=== PATIENT | female | born 1995 | race Caucasian/White ===

== ENCOUNTER 2017-04-04 06:11 | Emergency (ER) | payer OTHER ==
[~2017-04-04] VITALS: Ht 154.9 cm; Wt 72.6 kg
[2017-04-04 06:41] LABS: ABSOLUTE BASOPHILS 0.1 thou/uL (0.0-0.2); ABSOLUTE EOSINOPHILS 0.3 thou/uL (0.0-0.7); ABSOLUTE LYMPHOCYTES 3.8 thou/uL (0.8-5.3); ABSOLUTE MONOCYTES 0.9 thou/uL (0.0-1.2); ABSOLUTE NEUTROPHILS 7.5 thou/uL (1.6-8.1); BASOPHILS 0.9 %; EOSINOPHILS 2.2 %; HEMATOCRIT 43.9 % (37.0-47.0); HEMOGLOBIN 14.6 gm/dL (12.0-15.0); LYMPHOCYTES 30.4 %; MCH 29.2 pg (26.0-34.0); MCHC 33.3 g/dL (28.0-37.0); MCV 87.6 fL (80.0-100.0); MONOCYTES 6.9 %; MPV 8.1 fl. (7.2-11.1); NUCLEATED RBCS 0 /100WBC; PLATELET COUNT* 263 thou/uL (150-400); POLYS 59.6 %; RBC 5.01 mil/uL (4.20-5.00); RDW-CV 13.9 % (10.5-14.5); WBC 12.6 thou/uL (4.0-11.0)
[2017-04-04 06:55] LABS: CALCIUM 8.9 mg/dL (8.5-10.1); CREATININE 0.6 mg/dL (0.6-1.3); POTASSIUM 3.8 mmol/L (3.5-5.1)
[2017-04-04 07:00] LABS: TOTAL BILIRUBIN 0.2 mg/dL (<0.1-1.0); TOTAL PROTEIN 7.6 g/dL (6.4-8.2)
[2017-04-04 07:48] VITALS: BP 144/93
[2017-04-04 12:05] LABS: T3 UPTAKE 25 % (24-39)
--- NOTE | 2017-04-04 17:17 | EKG ---
[place] [address] ELECTROCARDIOGRAM REPORT Name: COLLINS BURNS Room: [facility]#: [id number] Admission: 04/04/17 Attend Phys: Discharge: 04/04/17 Date of : [birth year] Report #: [id number] THIS REPORT FOR: //name// [facility] ED Test Date: 2017-04-04 Test Time: 06:25:30 Pat Name: COLLINS BURNS Department: Room: Gender: F Educational Speech Language Clinician: KLEVER : 1995 Requested By: Shayy Morocho Order Number: [id number] MD: Thomas Cody Measurements Intervals [place] Rate: 76 P: 47 [place]: 139 QRS: 62 QRSD: 98 T: 42 QT: 363 QTc: 409 Interpretive Statements Sinus rhythm RSR' in V1 or V2, right VCD or RVH No previous ECG available for comparison Electronically Signed On 04-04-2017 17:16:54 DOWEL INSPECTOR by Thomas Cody [email or web address] <ELECTRONICALLY SIGNED> By: Thomas Cody MD, [facility] 04/04/17 1716 4 4 Thomas Cody MD, FACC /EPI
== END 2017-04-04 07:48 | disposition home or self-care (01) ==
LOC: M.ERS 06:11
PROVIDERS: Emergency Medicine; Personal Emergency Response Attendant
DX: R00.2 Palpitations (principal); F41.9 Anxiety disorder, unspecified; R07.89 Other chest pain

== ENCOUNTER 2017-04-16 06:47 | Emergency (ER) | payer OTHER ==
[~2017-04-16] VITALS: Ht 154.9 cm; Wt 72.6 kg
[2017-04-16] MEDS ORDERED: KEFLEX500 M1 PO (07:17)
[2017-04-16] MEDS ORDERED: IBUPROFEN 800800 MG PO (07:17)
[2017-04-16 07:35] VITALS: BP 152/82
== END 2017-04-16 07:35 | disposition home or self-care (01) ==
LOC: M.ERS 06:47
DX: N61.0 Mastitis without abscess (principal); F10.99 Alcohol use, unspecified with unspecified alcohol-induced disorder; T78.40XA Allergy, unspecified, initial encounter; X58.XXXA Exposure to other specified factors, initial encounter

== ENCOUNTER 2017-05-21 02:05 | Emergency (ER) | payer OTHER ==
[~2017-05-21] VITALS: Ht 154.9 cm; Wt 74.8 kg
[~2017-05-21 02:05] MED LIST: IBUPROFEN 800800 MG PO; KEFLEX500 M1 PO
[2017-05-21 02:16] VITALS: BP 153/100
[2017-05-21] MEDS ORDERED: TOBREX5 ML OPHTHALMIC (02:35)
== END 2017-05-21 02:49 | disposition home or self-care (01) ==
LOC: M.ERS 02:05
DX: H10.32 Unspecified acute conjunctivitis, left eye (principal); F41.0 Panic disorder [episodic paroxysmal anxiety]

== ENCOUNTER 2017-11-19 15:06 | Emergency (ER) | payer OTHER ==
[~2017-11-19] VITALS: Ht 154.9 cm; Wt 72.6 kg
[~2017-11-19 15:06] MED LIST changes: +TOBREX5 ML OPHTHALMIC
[2017-11-19] MEDS ORDERED: AFRIN15 ML NASAL (17:47)
[2017-11-19] MEDS ORDERED: BUTALB-APAP-CA1 EACH PO (17:47)
[2017-11-19] MEDS ORDERED: AMOXICILLIN 50500 MG PO (17:47)
[2017-11-19 17:58] VITALS: BP 117/81
== END 2017-11-19 17:59 | disposition home or self-care (01) ==
LOC: M.ERS 15:06
DX: R51 Headache (principal)

== ENCOUNTER 2017-11-22 03:54 | Emergency (ER) | payer OTHER ==
[~2017-11-22] VITALS: Ht 152.4 cm; Wt 72.6 kg
[~2017-11-22 03:54] MED LIST changes: +AFRIN15 ML NASAL; +AMOXICILLIN 50500 MG PO; +BUTALB-APAP-CA1 EACH PO
[2017-11-22] MEDS ORDERED: IBUPROFEN 800800 M1 PO (04:36)
[2017-11-22 04:45] VITALS: BP 139/92
== END 2017-11-22 04:47 | disposition home or self-care (01) ==
LOC: M.ERS 03:54
DX: L03.011 Cellulitis of right finger (principal); F41.0 Panic disorder [episodic paroxysmal anxiety]; G43.909 Migraine, unspecified, not intractable, without status migrainosus

== ENCOUNTER 2018-02-06 11:23 | Emergency (ER) | payer OTHER ==
[~2018-02-06] VITALS: Ht 154.9 cm; Wt 72.6 kg
[~2018-02-06 11:23] MED LIST changes: +IBUPROFEN 800800 M1 PO
[2018-02-06] MEDS ORDERED: TRAMADOL 50 MG50 MG PO (11:34)
[2018-02-06] MEDS ORDERED: AMOXICILLIN 50500 MG PO (11:34)
[2018-02-06] MEDS ORDERED: HYDROCODONE-AP1 EAC6 PO (11:41)
[2018-02-06 11:52] VITALS: BP 169/93
== END 2018-02-06 11:54 | disposition home or self-care (01) ==
LOC: M.ERS 11:23
DX: K02.9 Dental caries, unspecified (principal)

== ENCOUNTER 2018-06-16 16:18 | Emergency (ER) | payer OTHER ==
[~2018-06-16] VITALS: Ht 154.9 cm; Wt 76.2 kg
[~2018-06-16 16:18] MED LIST changes: +HYDROCODONE-AP1 EAC6 PO; +TRAMADOL 50 MG50 MG PO
[2018-06-16 16:36] VITALS: BP 158/98
[2018-06-16] MEDS ORDERED: TESSALON PERLE100 MG PO (17:05)
[2018-06-16] MEDS ORDERED: MEDROL DOSPAK21 TA1 PO (17:05)
== END 2018-06-16 17:18 | disposition home or self-care (01) ==
LOC: M.ERS 16:18
DX: J40 Bronchitis, not specified as acute or chronic (principal); F41.0 Panic disorder [episodic paroxysmal anxiety]; G43.909 Migraine, unspecified, not intractable, without status migrainosus

== ENCOUNTER 2018-08-21 12:25 | Emergency (ER) | payer OTHER ==
[~2018-08-21] VITALS: Ht 154.9 cm; Wt 72.6 kg
[~2018-08-21 12:25] MED LIST changes: +MEDROL DOSPAK21 TA1 PO; +TESSALON PERLE100 MG PO
[2018-08-21 13:31] VITALS: BP 147/97
== END 2018-08-21 13:33 | disposition home or self-care (01) ==
LOC: M.ERS 12:25
DX: S61.210A Laceration without foreign body of right index finger without damage to nail, initial encounter (principal); G43.909 Migraine, unspecified, not intractable, without status migrainosus; W26.0XXA Contact with knife, initial encounter; Y93.89 Activity, other specified; Y92.89 Other specified places as the place of occurrence of the external cause; Y99.8 Other external cause status

== ENCOUNTER 2018-08-31 16:02 | Emergency (ER) | payer OTHER ==
[~2018-08-31] VITALS: Ht 154.9 cm; Wt 72.6 kg
[2018-08-31 16:20] VITALS: BP 162/93
== END 2018-08-31 16:22 | disposition home or self-care (01) ==
LOC: M.ERS 16:02
DX: S61.210D Laceration without foreign body of right index finger without damage to nail, subsequent encounter (principal); G43.909 Migraine, unspecified, not intractable, without status migrainosus; X58.XXXD Exposure to other specified factors, subsequent encounter

== ENCOUNTER 2018-10-23 18:04 | Emergency (ER) | payer OTHER ==
[~2018-10-23] VITALS: Ht 154.9 cm; Wt 74.8 kg
[2018-10-23] MEDS ORDERED: BACTRIM DS TAB1 EACH PO (18:58)
[2018-10-23 19:13] VITALS: BP 148/92
== END 2018-10-23 19:14 | disposition home or self-care (01) ==
LOC: M.ERS 18:04
DX: L02.31 Cutaneous abscess of buttock (principal); G43.909 Migraine, unspecified, not intractable, without status migrainosus

== ENCOUNTER 2018-10-28 07:51 | Emergency (ER) | payer OTHER ==
[~2018-10-28] VITALS: Ht 154.9 cm; Wt 74.8 kg
[~2018-10-28 07:51] MED LIST changes: +BACTRIM DS TAB1 EACH PO
[2018-10-28] MEDS ORDERED: TRAMADOL 50 MG50 MG PO (08:08)
[2018-10-28] MEDS ORDERED: BACTRIM DS TAB1 EACH PO (08:08)
[2018-10-28 08:39] VITALS: BP 111/87
== END 2018-10-28 08:39 | disposition home or self-care (01) ==
LOC: M.ERS 07:51
DX: L02.31 Cutaneous abscess of buttock (principal); L02.511 Cutaneous abscess of right hand; F41.0 Panic disorder [episodic paroxysmal anxiety]; G43.909 Migraine, unspecified, not intractable, without status migrainosus

== ENCOUNTER 2019-02-17 12:24 | Emergency (ER) | payer OTHER ==
[~2019-02-17] VITALS: Ht 154.9 cm; Wt 72.6 kg
[2019-02-17 12:47] LABS: ABSOLUTE BASOPHILS 0.1 thou/uL (0.0-0.2); ABSOLUTE LYMPHOCYTES 3.1 thou/uL (0.8-5.3); ABSOLUTE MONOCYTES 0.7 thou/uL (0.0-1.2); ABSOLUTE NEUTROPHILS 7.9 thou/uL (1.6-8.1); BASOPHILS 1.1 %; EOSINOPHILS 0.4 %; HEMATOCRIT 43.2 % (37.0-47.0); HEMOGLOBIN 14.7 gm/dL (12.0-15.0); LYMPHOCYTES 25.9 %; MCH 29.1 pg (26.0-34.0); MCHC 34.1 g/dL (28.0-37.0); MCV 85.5 fL (80.0-100.0); MONOCYTES 5.9 %; MPV 7.7 fl. (7.2-11.1); NUCLEATED RBCS 0 /100WBC; PLATELET COUNT* 287 thou/uL (150-400); POLYS 66.7 %; RBC 5.06 mil/uL (4.20-5.00); RDW-CV 12.6 % (10.5-14.5); WBC 11.8 thou/uL (4.0-11.0)
[2019-02-17 13:10] LABS: CALCIUM 8.6 mg/dL (8.5-10.1); CREATININE 0.7 mg/dL (0.6-1.3); POTASSIUM 3.8 mmol/L (3.5-5.1)
[2019-02-17 13:20] LABS: MAGNESIUM 1.9 mg/dL (1.8-2.4); TOTAL BILIRUBIN 0.6 mg/dL (<0.1-1.0); TOTAL PROTEIN 7.9 g/dL (6.4-8.2)
[2019-02-17 15:35] VITALS: BP 110/80
--- NOTE | 2019-02-19 12:18 | EKG ---
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 : 1995 Requested By: Jose Fung Order Number: [id number] MD: Augusto Christopher Measurements Intervals [place] Rate: 112 P: 94 [place]: 128 QRS: 89 QRSD: 93 T: 11 QT: 329 QTc: 449 Interpretive Statements Sinus tachycardia Artifact in lead(s) I,III,aVR,aVL,aVF,V2,V5,V6 Compared to ECG 04/04/2017 06:25:30 Sinus rate has increased Right ventricular hypertrophy no longer present Electronically Signed On 02-19-2019 12:18:23 VACUUM CONDITIONER OPERATOR by Augusto Christopher [email or web address] <ELECTRONICALLY SIGNED> By: Augusto Christopher MD, FAC 02/19/19 1218 1229 1229 Augusto Christopher MD, [facility] /EPI
--- NOTE | 2019-02-19 12:19 | EKG ---
[place] [address] ELECTROCARDIOGRAM REPORT Name: COLLINS BURNS Room: [facility]#: [id number] Admission: 02/17/19 Attend Phys: Discharge: 02/17/19 Date of : [birth year] Report #: [id number] THIS REPORT FOR: //name// [facility] ED Test Date: 2019-02-17 Test Time: 14:53:46 Pat Name: COLLINS BURNS Department: Room: Gender: F Home Visitor: : 1995 Requested By: Jose Fung Order Number: [id number] MD: Augusto Christopher Measurements Intervals [place] Rate: 88 P: 42 [place]: 148 QRS: 53 QRSD: 100 T: 9 QT: 374 QTc: 453 Interpretive Statements Sinus rhythm Compared to ECG 04/04/2017 06:25:30 Right ventricular hypertrophy no longer present Electronically Signed On 02-19-2019 12:19:24 DIRECTORY CLERK by Augusto Christopher [email or web address] <ELECTRONICALLY SIGNED> By: Augusto Christopher MD, [facility] 02/19/19 1219 1453 145 Augusto Christopher MD, FACC /EPI
== END 2019-02-17 15:35 | disposition home or self-care (01) ==
LOC: M.ERS 12:24
PROVIDERS: Emergency Medicine Emergency Medical Services
DX: F14.10 Cocaine abuse, uncomplicated (principal); R07.89 Other chest pain; G43.909 Migraine, unspecified, not intractable, without status migrainosus; F17.210 Nicotine dependence, cigarettes, uncomplicated

== ENCOUNTER 2019-07-01 18:03 | Emergency (ER) | payer OTHER ==
[~2019-07-01] VITALS: Ht 154.9 cm; Wt 75.3 kg
[2019-07-01] MEDS ORDERED: VENTOLIN HFA 1818 GM INH (19:18)
[2019-07-01] MEDS ORDERED: ZPAK PO (19:18)
[2019-07-01 19:42] LABS: ABSOLUTE EOSINOPHILS 0.2 thou/uL (0.0-0.7); ABSOLUTE LYMPHOCYTES 2.3 thou/uL (0.8-5.3); ABSOLUTE MONOCYTES 0.6 thou/uL (0.0-1.2); ABSOLUTE NEUTROPHILS 4.5 thou/uL (1.6-8.1); BASOPHILS 0.6 %; HEMATOCRIT 40.9 % (37.0-47.0); HEMOGLOBIN 14.5 gm/dL (12.0-15.0); LYMPHOCYTES 30.1 %; MCH 30.4 pg (26.0-34.0); MCHC 35.4 g/dL (28.0-37.0); MONOCYTES 8.2 %; MPV 7.2 fl. (7.2-11.1); NUCLEATED RBCS 0 /100WBC; PLATELET COUNT* 271 thou/uL (150-400); POLYS 59.1 %; RBC 4.76 mil/uL (4.20-5.00); RDW-CV 12.8 % (10.5-14.5); WBC 7.7 thou/uL (4.0-11.0)
[2019-07-01 19:56] LABS: CALCIUM 8.3 mg/dL (8.5-10.1); CREATININE 0.7 mg/dL (0.6-1.3); POTASSIUM 3.4 mmol/L (3.5-5.1)
[2019-07-01 20:00] LABS: ALBUMIN 3.6 g/dL (3.4-5.0); TOTAL BILIRUBIN 0.4 mg/dL (<0.1-1.0); TOTAL PROTEIN 7.2 g/dL (6.4-8.2)
[2019-07-01 21:01] VITALS: BP 122/60
--- NOTE | 2019-07-02 12:54 | EKG ---
[place] [address] ELECTROCARDIOGRAM REPORT Name: COLLINS BURNS Room: [facility]#: [id number] Admission: 07/01/19 Attend Phys: Discharge: 07/01/19 Date of : [birth year] Date of Service: 07/01/191852 Report #: [id number] THIS REPORT FOR: //name// [facility] ED Test Date: 2019-07-01 Test Time: 18:53:21 Pat Name: COLLINS BURNS Department: Room: Gender: F Studio Operator: RENE : 1995 Requested By: Abena Aburto Order Number: [id number] MD: Thomas Cody Measurements Intervals [place] Rate: 85 P: 28 [place]: 132 QRS: 59 QRSD: 91 T: 34 QT: 366 QTc: 436 Interpretive Statements Sinus rhythm RSR' in V1 or V2, right VCD or RVH Compared to ECG 02/17/2019 14:53:46 Right ventricular hypertrophy now present RSR' in V1 or V2 now present Electronically Signed On 07-02-2019 12:52:58 CDT by Thomas Cody [email or web address] <ELECTRONICALLY SIGNED> By: Thomas Cody MD, FACC 07/02/19 1252 185 1853 Thomas Cody MD, FACC /EPI
== END 2019-07-01 21:01 | disposition home or self-care (01) ==
LOC: M.ERS 18:03
PROVIDERS: Nurse Practitioner Family
DX: J06.9 Acute upper respiratory infection, unspecified (principal); R06.00 Dyspnea, unspecified; G43.909 Migraine, unspecified, not intractable, without status migrainosus; F17.210 Nicotine dependence, cigarettes, uncomplicated

== ENCOUNTER 2019-09-23 19:07 | Emergency (ER) | payer OTHER ==
[~2019-09-23] VITALS: Ht 180.3 cm; Wt 77.1 kg
[~2019-09-23 19:07] MED LIST changes: +VENTOLIN HFA 1818 GM INH; +ZPAK PO
[2019-09-23 19:42] LABS: ABSOLUTE BASOPHILS 0.1 thou/uL (0.0-0.2); ABSOLUTE EOSINOPHILS 0.3 thou/uL (0.0-0.7); ABSOLUTE LYMPHOCYTES 3.2 thou/uL (0.8-5.3); ABSOLUTE MONOCYTES 0.7 thou/uL (0.0-1.2); ABSOLUTE NEUTROPHILS 5.8 thou/uL (1.6-8.1); BASOPHILS 0.7 %; EOSINOPHILS 3.1 %; HEMATOCRIT 42.4 % (37.0-47.0); HEMOGLOBIN 14.9 gm/dL (12.0-15.0); MCH 31.8 pg (26.0-34.0); MCHC 35.2 g/dL (28.0-37.0); MCV 90.3 fL (80.0-100.0); MONOCYTES 7.3 %; MPV 8.2 fl. (7.2-11.1); NUCLEATED RBCS 0 /100WBC; PLATELET COUNT* 225 thou/uL (150-400); POLYS 56.9 %; RBC 4.69 mil/uL (4.20-5.00); RDW-CV 13.7 % (10.5-14.5); WBC 10.1 thou/uL (4.0-11.0)
[2019-09-23 19:47] LABS: CALCIUM 8.7 mg/dL (8.5-10.1); CREATININE 0.8 mg/dL (0.6-1.3); POTASSIUM 3.4 mmol/L (3.5-5.1)
[2019-09-23 19:57] LABS: ALBUMIN 3.9 g/dL (3.4-5.0); MAGNESIUM 2.1 mg/dL (1.8-2.4); TOTAL BILIRUBIN 0.5 mg/dL (<0.1-1.0); TOTAL PROTEIN 7.6 g/dL (6.4-8.2)
[2019-09-23 20:07] LABS: URINE BILIRUBIN NEGATIVE (Negative); URINE BLOOD NEGATIVE (Negative); URINE CLARITY CLEAR; URINE COLOR YELLOW; URINE GLUCOSE-RANDOM NEGATIVE (Negative); URINE KETONES NEGATIVE (Negative); URINE LEUKOCYTES-REFLEX NEGATIVE (Negative); URINE NITRITE-REFLEX NEGATIVE (Negative); URINE PROTEIN NEGATIVE (Negative); URINE SPECIFIC GRAVITY <= 1.005 (1.005-1.030); URINE UROBILINOGEN 0.2 E.U./dl (0.2-1.0)
[2019-09-23 21:33] VITALS: BP 167/100
--- NOTE | 2019-09-24 08:48 | EKG ---
[place] [address] ELECTROCARDIOGRAM REPORT Name: ARISELLECOLLINS Konstantin Room: [facility]#: [id number] Admission: 09/23/19 Attend Phys: Discharge: 09/23/19 Date of : [birth year] Date of Service: 09/23/191950 Report #: [id number] THIS REPORT FOR: //name// [facility] ED Test Date: 2019-09-23 Test Time: 19:51:05 Pat Name: COLLINS BURNS Department: Room: Gender: F Supervisor Keymodule Assembly: ADARSH : 1995 Requested By: Jose Fung Order Number: [id number] MD: Thomas Cody Measurements Intervals [place] Rate: 76 P: 41 [place]: 148 QRS: 49 QRSD: 94 T: 29 QT: 374 QTc: 421 Interpretive Statements Sinus rhythm Compared to ECG 07/01/2019 18:53:21 Right ventricular hypertrophy no longer present Electronically Signed On 09-24-2019 8:47:55 CDT by Thomas Cody [email or web address] <ELECTRONICALLY SIGNED> By: Thomas Cody MD, [facility] 09/24/19 0847 50 50 Thomas Cody MD, [facility] /EPI
== END 2019-09-23 21:33 | disposition home or self-care (01) ==
LOC: M.ERS 19:07
PROVIDERS: Emergency Medicine Emergency Medical Services
DX: M25.472 Effusion, left ankle (principal); M25.471 Effusion, right ankle; R00.2 Palpitations; G43.909 Migraine, unspecified, not intractable, without status migrainosus; F17.210 Nicotine dependence, cigarettes, uncomplicated

== ENCOUNTER 2019-09-27 14:46 | Emergency (ER) | payer OTHER ==
[~2019-09-27] VITALS: Ht 154.9 cm; Wt 77.1 kg
[2019-09-27 15:13] LABS: ABSOLUTE BASOPHILS 0.1 thou/uL (0.0-0.2); ABSOLUTE EOSINOPHILS 0.3 thou/uL (0.0-0.7); ABSOLUTE LYMPHOCYTES 2.6 thou/uL (0.8-5.3); ABSOLUTE NEUTROPHILS 4.4 thou/uL (1.6-8.1); BASOPHILS 0.6 %; EOSINOPHILS 3.2 %; HEMATOCRIT 46.8 % (37.0-47.0); HEMOGLOBIN 16.4 gm/dL (12.0-15.0); LYMPHOCYTES 31.3 %; MCH 31.6 pg (26.0-34.0); MCHC 34.9 g/dL (28.0-37.0); MCV 90.5 fL (80.0-100.0); MONOCYTES 12.2 %; MPV 7.7 fl. (7.2-11.1); NUCLEATED RBCS 0 /100WBC; PLATELET COUNT* 277 thou/uL (150-400); POLYS 52.7 %; RBC 5.17 mil/uL (4.20-5.00); RDW-CV 13.7 % (10.5-14.5); WBC 8.3 thou/uL (4.0-11.0)
[2019-09-27 15:21] LABS: CALCIUM 8.8 mg/dL (8.5-10.1); CREATININE 0.9 mg/dL (0.6-1.3); POTASSIUM 3.8 mmol/L (3.5-5.1)
[2019-09-27 15:37] LABS: ALBUMIN 4.3 g/dL (3.4-5.0); MAGNESIUM 2.2 mg/dL (1.8-2.4); TOTAL BILIRUBIN 0.6 mg/dL (<0.1-1.0); TOTAL PROTEIN 8.6 g/dL (6.4-8.2)
[2019-09-27 17:26] VITALS: BP 124/83
--- NOTE | 2019-09-28 09:56 | EKG ---
[place] [address] ELECTROCARDIOGRAM REPORT Name: ARISELLECOLLINS Room: [facility]#: [id number] Admission: 09/27/19 Attend Phys: Discharge: 09/27/19 Date of : [birth year] Date of Service: 09/27/19 1450 Report #: [id number] THIS REPORT FOR: //name// [facility] ED Test Date: 2019-09-27 Test Time: 14:50:40 Pat Name: COLLINS BURNS Department: Room: Gender: F Sanitary Aide: : 1995 Requested By: Jose Fung Order Number: [id number] MD: Rojelio Carrero Measurements Intervals [place] Rate: 100 P: 51 [place]: 138 QRS: 65 QRSD: 95 T: 17 QT: 340 QTc: 439 Interpretive Statements Sinus tachycardia RSR' in V1 or V2, right VCD or RVH Compared to ECG 09/23/2019 19:51:05 Sinus rhythm no longer present Electronically Signed On 09-28-2019 9:55:46 CDT by Rojelio Carrero [email or web address] <ELECTRONICALLY SIGNED> By: Rojelio Carrero MD, [facility] 09/28/19 0955 1450 1450 Rojelio Carrero MD, [facility] /EPI
== END 2019-09-27 17:28 | disposition home or self-care (01) ==
LOC: M.ERS 14:46
PROVIDERS: Emergency Medicine Emergency Medical Services
DX: R07.89 Other chest pain (principal); G43.909 Migraine, unspecified, not intractable, without status migrainosus; F17.210 Nicotine dependence, cigarettes, uncomplicated

== ENCOUNTER 2020-08-11 15:34 | Emergency (ER) | payer OTHER ==
[~2020-08-11] VITALS: Ht 157.5 cm; Wt 72.6 kg
[2020-08-11 16:20] LABS: ABSOLUTE BASOPHILS 0.1 thou/uL (0.0-0.2); ABSOLUTE EOSINOPHILS 0.4 thou/uL (0.0-0.7); ABSOLUTE LYMPHOCYTES 2.6 thou/uL (0.8-5.3); ABSOLUTE MONOCYTES 0.8 thou/uL (0.0-1.2); ABSOLUTE NEUTROPHILS 6.2 thou/uL (1.6-8.1); BASOPHILS 0.9 %; EOSINOPHILS 3.7 %; HEMATOCRIT 40.5 % (37.0-47.0); HEMOGLOBIN 14.2 gm/dL (12.0-15.0); MCH 31.5 pg (26.0-34.0); MCHC 34.9 g/dL (28.0-37.0); MCV 90.3 fL (80.0-100.0); MPV 7.9 fl. (7.2-11.1); NUCLEATED RBCS 0 /100WBC; PLATELET COUNT* 246 thou/uL (150-400); POLYS 61.4 %; RBC 4.49 mil/uL (4.20-5.00); WBC 10.1 thou/uL (4.0-11.0)
[2020-08-11 16:55] LABS: URINE BILIRUBIN NEGATIVE (Negative); URINE BLOOD NEGATIVE (Negative); URINE CLARITY CLEAR; URINE COLOR YELLOW; URINE GLUCOSE-RANDOM NEGATIVE (Negative); URINE KETONES NEGATIVE (Negative); URINE LEUKOCYTES-REFLEX NEGATIVE (Negative); URINE NITRITE-REFLEX NEGATIVE (Negative); URINE PROTEIN NEGATIVE (Negative); URINE SPECIFIC GRAVITY 1.015 (1.005-1.030)
[2020-08-11] MEDS ORDERED: VISTARIL 25 MG25 M1 PO (16:56)
[2020-08-11 17:03] LABS: CALCIUM 8.4 mg/dL (8.5-10.1); CREATININE 0.7 mg/dL (0.6-1.3); POTASSIUM 3.9 mmol/L (3.5-5.1)
[2020-08-11 17:13] LABS: ALBUMIN 3.6 g/dL (3.4-5.0); TOTAL BILIRUBIN 0.5 mg/dL (<0.1-1.0); TOTAL PROTEIN 6.7 g/dL (6.4-8.2)
[2020-08-11 18:49] VITALS: BP 142/65
--- NOTE | 2020-08-12 10:52 | EKG ---
[place] [address] ELECTROCARDIOGRAM REPORT Name: COLLINS BURNS Room: [facility]#: [id number] Admission: 08/11/20 Attend Phys: Discharge: 08/11/20 Date of : [birth year] Date of Service: 08/11/20 1625 Report #: [id number] THIS REPORT FOR: //name// [facility] ED Test Date: 2020-08-11 Test Time: 16:25:24 Pat Name: COLLINS BURNS Department: Room: Gender: F Mail Handler: IBRAHIM : 1995 Requested By: Abraham León Order Number: [id number] MD: Augusto Christopher Measurements Intervals [place] Rate: 75 P: 19 [place]: 144 QRS: 42 QRSD: 100 T: 15 QT: 384 QTc: 429 Interpretive Statements Sinus rhythm Compared to ECG 09/27/2019 14:50:40 Sinus tachycardia no longer present Minor IVCD of the right type no longer noted Electronically Signed On 08-12-2020 10:52:05 CDT by Augusto Christopher [email or web address] <ELECTRONICALLY SIGNED> By: Augusto Christopher MD, [facility] 08/12/20 1052 1625 1625 Augusto Christopher MD, [facility] /EPI
== END 2020-08-11 18:50 | disposition home or self-care (01) ==
LOC: M.ERS 15:34
PROVIDERS: Physician Assistant
DX: R00.2 Palpitations (principal); G43.909 Migraine, unspecified, not intractable, without status migrainosus; F17.210 Nicotine dependence, cigarettes, uncomplicated

== ENCOUNTER 2020-11-15 13:54 | Emergency (ER) | payer OTHER ==
[~2020-11-15] VITALS: Ht 154.9 cm; Wt 77.1 kg
[~2020-11-15 13:54] MED LIST changes: +VISTARIL 25 MG25 M1 PO
[2020-11-15] MEDS ORDERED: FLAGYL500 M1 PO (14:21)
[2020-11-15] MEDS ORDERED: DIFLUCAN150 MG PO (14:21)
[2020-11-15] MEDS ORDERED: DOXYCYCLINE 10100 MG PO (14:21)
[2020-11-15] MEDS ORDERED: SUPRAX400 M1 PO (14:21)
[2020-11-15 15:08] VITALS: BP 122/72
== END 2020-11-15 15:08 | disposition home or self-care (01) ==
LOC: M.ERS 13:54
DX: S30.814A Abrasion of vagina and vulva, initial encounter (principal); N76.0 Acute vaginitis; B96.89 Other specified bacterial agents as the cause of diseases classified elsewhere; G43.909 Migraine, unspecified, not intractable, without status migrainosus; F17.210 Nicotine dependence, cigarettes, uncomplicated; Z79.899 Other long term (current) drug therapy; X58.XXXA Exposure to other specified factors, initial encounter; Y93.89 Activity, other specified; Y92.89 Other specified places as the place of occurrence of the external cause; Y99.8 Other external cause status